=== PATIENT | male | born 2000 | race Two or more races ===

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

== ENCOUNTER 2021-02-08 19:13 | Emergency (ER) | payer MEDICAID ==
[~2021-02-08] VITALS: Ht 180.3 cm; Wt 115.0 kg
[~2021-02-08 19:13] MED LIST: DOCU-270 PO; HYDR-4396 PO; SERT-158 PO
[2021-02-08 19:37] VITALS: BP 129/77
== END 2021-02-08 19:45 | disposition left against medical advice (07) ==
LOC: EMS 19:13
DX: R20.0 Anesthesia of skin (principal); Z53.21 Procedure and treatment not carried out due to patient leaving prior to being seen by health care provider

== ENCOUNTER 2021-11-06 19:50 | Emergency (ER) | payer MEDICAID ==
[~2021-11-06] VITALS: Ht 182.9 cm; Wt 120.9 kg
[~2021-11-06 19:50] MED LIST changes: -DOCU-270 PO; +DOCU-385 PO
[2021-11-06 19:53] VITALS: BP 146/70
[2021-11-06] MEDS ORDERED: ESCI-8 PO (20:40)
[2021-11-06] MEDS ORDERED: ARIP5TAB37 PO (20:40)
[2021-11-06] MEDS ORDERED: BUSP5TAB20 PO (20:40)
[2021-11-06] MEDS ORDERED: HYDR-4808 PO (20:40)
[2021-11-06] MEDS ORDERED: LORA-1000 PO (21:30)
[2021-11-06] MEDS ORDERED: LORazepam 2 MG TABLET PO ONE (21:30)
== END 2021-11-06 23:03 | disposition home or self-care (01) ==
LOC: EMS 19:54
DX: F41.9 Anxiety disorder, unspecified (principal); F32.9 Major depressive disorder, single episode, unspecified; F20.9 Schizophrenia, unspecified; F14.90 Cocaine use, unspecified, uncomplicated; F12.90 Cannabis use, unspecified, uncomplicated; Z87.438 Personal history of other diseases of male genital organs; Z88.8 Allergy status to other drugs, medicaments and biological substances
CPT/HCPCS: 99283; 99284

== ENCOUNTER 2021-11-07 15:39 | Emergency (ER) | payer MEDICAID ==
[~2021-11-07] VITALS: Ht 182.9 cm; Wt 117.0 kg
[~2021-11-07 15:39] MED LIST changes: +ARIP5TAB37 PO; +BUSP5TAB20 PO; +ESCI-8 PO; +HYDR-4808 PO; +LORA-1000 PO
[2021-11-07 15:42] VITALS: BP 144/76
== END 2021-11-07 16:42 | disposition left against medical advice (07) ==
LOC: EMS 15:52
DX: Z53.21 Procedure and treatment not carried out due to patient leaving prior to being seen by health care provider (principal)

== ENCOUNTER 2022-04-16 14:17 | Emergency (ER) | payer MEDICAID, OTHER ==
[~2022-04-16] VITALS: Ht 182.9 cm; Wt 106.8 kg
[2022-04-16 14:24] VITALS: BP 97/55
[2022-04-16] MEDS ORDERED: QUET25TA PO (14:27)
[2022-04-16 15:05] LABS: COVID AG,FIA SOURCE NASAL SWAB
[2022-04-16] MEDS ORDERED: GuaiFENesin/D-METHORPHAN [SUGAR-FREE] 200-20MG/10 ML SYRUP UDCUP PO ONE (15:15)
[2022-04-16] MEDS ORDERED: ACETAMINOPHEN 500 MG TABLET PO ONE (15:15)
[2022-04-16] MEDS ORDERED: IBUP-1554 PO (15:40)
[2022-04-16] MEDS ORDERED: ACET-66 PO (15:40)
[2022-04-16] MEDS ORDERED: GUAIFDM PO (15:40)
== END 2022-04-16 15:50 | disposition home or self-care (01) ==
LOC: EMS 14:37
DX: R07.89 Other chest pain (principal); J06.9 Acute upper respiratory infection, unspecified; F41.9 Anxiety disorder, unspecified; F32.A Depression, unspecified; F20.9 Schizophrenia, unspecified; F12.90 Cannabis use, unspecified, uncomplicated; Z20.822 Contact with and (suspected) exposure to COVID-19
CPT/HCPCS: 99283

== ENCOUNTER 2022-04-23 13:29 | Emergency (ER) | payer OTHER ==
[~2022-04-23] VITALS: Ht 182.9 cm; Wt 122.7 kg
[~2022-04-23 13:29] MED LIST changes: +ACET-66 PO; -ARIP5TAB37 PO; -BUSP5TAB20 PO; -DOCU-385 PO; -ESCI-8 PO; +GUAIFDM PO; -HYDR-4396 PO; -HYDR-4808 PO; +IBUP-1554 PO; -LORA-1000 PO; +QUET25TA PO; -SERT-158 PO
[2022-04-23 13:37] VITALS: BP 115/72
[2022-04-23] MEDS ORDERED: LORazepam 1 MG TABLET PO ONE (14:30)
[2022-04-23] MEDS ORDERED: DiphenhydrAMINE HCL 25 MG CAPSULE PO ONE (14:30)
[2022-04-23] MEDS ORDERED: HALOPERIDOL 5 MG TABLET PO ONE (14:30)
== END 2022-04-23 14:39 | disposition home or self-care (01) ==
LOC: EMS 13:33
DX: F20.9 Schizophrenia, unspecified (principal); F32.9 Major depressive disorder, single episode, unspecified; F41.9 Anxiety disorder, unspecified; F12.90 Cannabis use, unspecified, uncomplicated; Z85.47 Personal history of malignant neoplasm of testis
CPT/HCPCS: 99284

== ENCOUNTER 2022-04-28 16:39 | Emergency (ER) | payer OTHER ==
[~2022-04-28] VITALS: Ht 182.9 cm; Wt 122.7 kg
[~2022-04-28 16:39] MED LIST changes: -ACET-66 PO; -GUAIFDM PO; -IBUP-1554 PO
[2022-04-28 16:41] VITALS: BP 148/76
[2022-04-28] MEDS ORDERED: LORazepam 2 MG/ML VIAL IVP ONE (18:00)
== END 2022-04-28 19:17 | disposition home or self-care (01) ==
LOC: EMS 16:39
DX: F41.9 Anxiety disorder, unspecified (principal); F32.9 Major depressive disorder, single episode, unspecified; F20.9 Schizophrenia, unspecified; F12.90 Cannabis use, unspecified, uncomplicated
CPT/HCPCS: 99281; Z7502

== ENCOUNTER 2022-07-30 14:00 | Emergency (ER) | payer OTHER ==
[~2022-07-30] VITALS: Ht 182.9 cm; Wt 122.7 kg
[2022-07-30 14:57] VITALS: BP 137/67
[2022-07-30] MEDS ORDERED: PENI500T2 PO (15:13)
[2022-07-30] MEDS ORDERED: IBUP-1554 PO (15:13)
[2022-07-30] MEDS ORDERED: HYDR-4723 PO (15:13)
[2022-07-30] MEDS ORDERED: IBUPROFEN 600 MG TABLET PO ONE (15:15)
[2022-07-30] MEDS ORDERED: HYDROCODONE/ACETAMINOPHEN 5-325 MG TABLET PO ONE (15:15)
== END 2022-07-30 15:37 | disposition home or self-care (01) ==
LOC: EMS 14:35
DX: K02.9 Dental caries, unspecified (principal); J45.909 Unspecified asthma, uncomplicated; F41.9 Anxiety disorder, unspecified; F32.A Depression, unspecified; F20.9 Schizophrenia, unspecified; F12.90 Cannabis use, unspecified, uncomplicated; Z88.8 Allergy status to other drugs, medicaments and biological substances
CPT/HCPCS: 99283

== ENCOUNTER 2022-08-04 11:15 | Emergency (ER) | payer OTHER ==
[~2022-08-04] VITALS: Ht 182.9 cm; Wt 118.2 kg
[~2022-08-04 11:15] MED LIST changes: +HYDR-4723 PO; +IBUP-1554 PO; +PENI500T2 PO; -QUET25TA PO
[2022-08-04] MEDS ORDERED: TRAM-559 PO (12:49)
[2022-08-04 13:00] VITALS: BP 125/76
== END 2022-08-04 13:20 | disposition home or self-care (01) ==
LOC: EMS 11:40
DX: S02.5XXA Fracture of tooth (traumatic), initial encounter for closed fracture (principal); K08.89 Other specified disorders of teeth and supporting structures; F41.9 Anxiety disorder, unspecified; J45.909 Unspecified asthma, uncomplicated; F32.A Depression, unspecified; F20.9 Schizophrenia, unspecified; F12.90 Cannabis use, unspecified, uncomplicated; Z88.8 Allergy status to other drugs, medicaments and biological substances; X58.XXXA Exposure to other specified factors, initial encounter; Y93.89 Activity, other specified; Y92.89 Other specified places as the place of occurrence of the external cause; Y99.8 Other external cause status
CPT/HCPCS: 99283; Z7502

== ENCOUNTER 2022-08-10 14:30 | Emergency (ER) | payer OTHER ==
[~2022-08-10] VITALS: Ht 182.9 cm; Wt 118.2 kg
[~2022-08-10 14:30] MED LIST changes: +TRAM-559 PO
[2022-08-10 15:24] VITALS: BP 104/70
[2022-08-10] MEDS ORDERED: TRAM-559 PO (15:40)
== END 2022-08-10 16:09 | disposition home or self-care (01) ==
LOC: EMS 14:34
DX: K02.9 Dental caries, unspecified (principal); F41.9 Anxiety disorder, unspecified; J45.909 Unspecified asthma, uncomplicated; F32.A Depression, unspecified; F20.9 Schizophrenia, unspecified; F12.90 Cannabis use, unspecified, uncomplicated; Z88.8 Allergy status to other drugs, medicaments and biological substances
CPT/HCPCS: 99283; Z7502

== ENCOUNTER 2022-09-05 16:38 | Emergency (ER) | payer OTHER ==
[~2022-09-05] VITALS: Ht 182.9 cm; Wt 122.7 kg
[~2022-09-05 16:38] MED LIST changes: -HYDR-4723 PO
[2022-09-05 16:59] VITALS: BP 112/67
== END 2022-09-05 19:17 | disposition left against medical advice (07) ==
LOC: EMS 16:39
DX: F41.0 Panic disorder [episodic paroxysmal anxiety] (principal); Z53.21 Procedure and treatment not carried out due to patient leaving prior to being seen by health care provider
CPT/HCPCS: 99281; Z7502

== ENCOUNTER 2022-09-11 14:09 | Emergency (ER) | payer OTHER ==
[~2022-09-11] VITALS: Ht 182.9 cm; Wt 118.2 kg
[2022-09-11] MEDS ORDERED: ESCI-8 PO (14:12)
[2022-09-11] MEDS ORDERED: LIDOCAINE 5% TRANSDERMAL PATCH TD ONE (15:30)
[2022-09-11] MEDS ORDERED: KETOROLAC TROMETHAMINE 30 MG/ML VIAL IM ONE (15:30)
[2022-09-11] MEDS ORDERED: LIDO700A15 TP (16:49)
[2022-09-11] MEDS ORDERED: CYCL-448 PO (16:49)
[2022-09-11 17:00] VITALS: BP 114/60
== END 2022-09-11 17:02 | disposition home or self-care (01) ==
LOC: EMS 14:11
DX: M54.2 Cervicalgia (principal); F41.9 Anxiety disorder, unspecified; J45.909 Unspecified asthma, uncomplicated; F32.A Depression, unspecified; F20.9 Schizophrenia, unspecified; F12.90 Cannabis use, unspecified, uncomplicated; Z88.8 Allergy status to other drugs, medicaments and biological substances
CPT/HCPCS: 99283; 72040; 96372; J1885

== ENCOUNTER 2022-09-14 08:33 | Emergency (ER) | payer OTHER ==
[~2022-09-14] VITALS: Ht 182.9 cm; Wt 113.6 kg
[~2022-09-14 08:33] MED LIST changes: +CYCL-448 PO; +ESCI-8 PO; -IBUP-1554 PO; +LIDO700A15 TP; -PENI500T2 PO; -TRAM-559 PO
[2022-09-14] MEDS ORDERED: IBUP-1492 PO (08:47)
[2022-09-14] MEDS ORDERED: KETOROLAC TROMETHAMINE 30 MG/ML VIAL IM ONE (09:00)
[2022-09-14 09:05] VITALS: BP 107/61
== END 2022-09-14 09:05 | disposition home or self-care (01) ==
LOC: EMS 08:35
DX: K13.79 Other lesions of oral mucosa (principal); K02.9 Dental caries, unspecified; F41.9 Anxiety disorder, unspecified; J45.909 Unspecified asthma, uncomplicated; F32.A Depression, unspecified; F20.9 Schizophrenia, unspecified; F12.90 Cannabis use, unspecified, uncomplicated; Z88.8 Allergy status to other drugs, medicaments and biological substances
CPT/HCPCS: 99283; 96372; J1885

== ENCOUNTER 2022-10-16 15:25 | Emergency (ER) | payer OTHER ==
[~2022-10-16] VITALS: Ht 182.9 cm; Wt 120.5 kg
[~2022-10-16 15:25] MED LIST changes: +IBUP-1492 PO
[2022-10-16] MEDS ORDERED: HYDR-4808 PO (15:53)
[2022-10-16] MEDS ORDERED: CLON-595 PO (15:53)
[2022-10-16 16:09] VITALS: BP 156/57
== END 2022-10-16 16:10 | disposition home or self-care (01) ==
LOC: EMS 15:25
DX: F41.0 Panic disorder [episodic paroxysmal anxiety] (principal); F41.9 Anxiety disorder, unspecified; J45.909 Unspecified asthma, uncomplicated; F32.A Depression, unspecified; F20.9 Schizophrenia, unspecified; F12.90 Cannabis use, unspecified, uncomplicated; Z88.8 Allergy status to other drugs, medicaments and biological substances
CPT/HCPCS: 99283; Z7502

== ENCOUNTER 2023-01-29 18:26 | Emergency (ER) | payer OTHER ==
[~2023-01-29] VITALS: Ht 185.4 cm; Wt 123.2 kg
[~2023-01-29 18:26] MED LIST changes: +CLON-595 PO; +HYDR-4808 PO
[2023-01-29 18:34] VITALS: BP 98/63; PULSE 75; RESP 18; TEMP 98
[2023-01-29] MEDS ORDERED: PARO10TA89 PO (18:54)
[2023-01-29] MEDS ORDERED: LORazepam 1 MG TABLET PO ONE (19:00)
== END 2023-01-29 19:05 | disposition home or self-care (01) ==
LOC: EMS 18:27
DX: F41.9 Anxiety disorder, unspecified (principal); J45.909 Unspecified asthma, uncomplicated; F32.A Depression, unspecified; F20.9 Schizophrenia, unspecified; F12.90 Cannabis use, unspecified, uncomplicated; Z88.8 Allergy status to other drugs, medicaments and biological substances
CPT/HCPCS: 99283

== ENCOUNTER 2023-02-12 13:42 | Emergency (ER) | payer OTHER ==
[~2023-02-12] VITALS: Ht 177.8 cm; Wt 103.0 kg
[~2023-02-12 13:42] MED LIST changes: -CLON-595 PO; -CYCL-448 PO; -ESCI-8 PO; -IBUP-1492 PO; -LIDO700A15 TP; +PARO10TA89 PO
[2023-02-12 13:43] VITALS: BP 122/78; PULSE 90; RESP 16; TEMP 98.4
[2023-02-12 15:40] LABS: BASOPHILS % (AUTO) 0.8 % (0.0-2.0); EOSINOPHILS % (AUTO) 0.3 % (1.0-6.0); HEMATOCRIT 42.4 % (41-53); HEMOGLOBIN 14.2 g/dL (13.5-17.5); LYMPHOCYTES # (AUTO) 0.8 K/uL (1.0-4.8); LYMPHOCYTES % (AUTO) 16.8 % (22.0-44.0); MEAN CORPUSCULAR HEMOGLOBIN 27.5 pg (26.0-34.0); MEAN CORPUSCULAR HGB CONC 33.5 G/dL (31.0-37.0); MEAN CORPUSCULAR VOLUME 82 fL (80-100); MONOCYTES # (AUTO) 0.6 K/uL (0.1-1.0); MONOCYTES % (AUTO) 14.2 % (2.0-9.0); NEUTROPHILS % (AUTO) 67.9 % (40.0-70.0); PLATELET COUNT (AUTO) 193 K/uL (150-450); RED BLOOD CELL COUNT(AUTO) 5.16 MIL/uL (4.50-5.90); WHITE BLOOD COUNT (AUTO) 4.5 K/uL (4.5-11.0)
[2023-02-12 15:53] LABS: ANION GAP 8 mmol/L (8-16); CALCIUM, TOTAL 8.7 mg/dL (8.8-10.5); CARBON DIOXIDE 27 mmol/L (22-29); CHLORIDE 103 mmol/L (98-107); CREATININE 0.94 mg/dL (0.60-1.30); GLOMERULAR FILTR. RATE CALC > 60 mL/min (>60); GLUCOSE,RANDOM 80 mg/dL (70-110); POTASSIUM 3.7 mmol/L (3.5-5.1); SODIUM SERUM 137 mmol/L (136-145); UREA NITROGEN, BLOOD 9 mg/dL (7-18)
[2023-02-12 15:58] LABS: ALANINE AMINOTRANSFERASE 60 U/L (12-78); ALBUMIN 3.5 g/dL (3.4-5.0); ALKALINE PHOSPHATASE 44 U/L (46-116); ASPARTATE AMINOTRANSFERASE 29 U/L (15-37); BILIRUBIN,TOTAL 0.5 mg/dL (0.1-1.0); TOTAL PROTEIN, SERUM 6.4 g/dL (6.4-8.2)
[2023-02-12 16:03] LABS: ALCOHOL, BLOOD (SERUM) < 3 mg/dL (0-10)
[2023-02-12] MEDS ORDERED: QUET25TA PO (16:36)
[2023-02-12] MEDS ORDERED: QUET100T PO (16:36)
== END 2023-02-12 16:56 | disposition home or self-care (01) ==
LOC: EMS 13:49
DX: F41.9 Anxiety disorder, unspecified (principal); G47.00 Insomnia, unspecified; J45.909 Unspecified asthma, uncomplicated; F32.A Depression, unspecified; F12.90 Cannabis use, unspecified, uncomplicated; Z88.8 Allergy status to other drugs, medicaments and biological substances
CPT/HCPCS: 80053; 85025; 36415; 99283; G0480

== ENCOUNTER 2023-03-15 12:13 | Emergency (ER) | payer OTHER ==
[~2023-03-15] VITALS: Ht 185.4 cm; Wt 111.4 kg
[~2023-03-15 12:13] MED LIST changes: -PARO10TA89 PO; +QUET100T PO; +QUET25TA PO
[2023-03-15 12:18] VITALS: TEMP 98.2
[2023-03-15] MEDS ORDERED: ESCI20TA87 PO (12:18)
[2023-03-15 14:45] VITALS: BP 110/60; PULSE 80; RESP 12
== END 2023-03-15 14:58 | disposition home or self-care (01) ==
LOC: EMS 12:14
DX: G47.00 Insomnia, unspecified (principal); F41.9 Anxiety disorder, unspecified; J45.909 Unspecified asthma, uncomplicated; F32.A Depression, unspecified; F20.9 Schizophrenia, unspecified; F12.90 Cannabis use, unspecified, uncomplicated; Z88.8 Allergy status to other drugs, medicaments and biological substances
CPT/HCPCS: 99281; Z7502

== ENCOUNTER 2023-04-09 14:05 | Emergency (ER) | payer OTHER ==
[~2023-04-09] VITALS: Ht 184.2 cm; Wt 108.2 kg
[~2023-04-09 14:05] MED LIST changes: +ESCI20TA87 PO; +PARO10TA89 PO
[2023-04-09 14:16] VITALS: TEMP 97.9
[2023-04-09] MEDS ORDERED: KETOROLAC TROMETHAMINE 30 MG/ML VIAL IM ONE (15:45)
[2023-04-09] MEDS ORDERED: LIDOCAINE 5% TRANSDERMAL PATCH TD ONE (15:45)
[2023-04-09] MEDS ORDERED: TraMADol HCL 50 MG TABLET PO ONE (15:45)
[2023-04-09] MEDS ORDERED: CYCL-448 PO (17:15)
[2023-04-09] MEDS ORDERED: LIDO700A15 TP (17:15)
[2023-04-09 17:19] VITALS: BP 118/66; PULSE 64; RESP 16
== END 2023-04-09 17:20 | disposition home or self-care (01) ==
LOC: EMS 14:10
DX: S09.90XA Unspecified injury of head, initial encounter (principal); M54.2 Cervicalgia; J45.909 Unspecified asthma, uncomplicated; Z88.8 Allergy status to other drugs, medicaments and biological substances; X58.XXXA Exposure to other specified factors, initial encounter; Y93.89 Activity, other specified; Y92.89 Other specified places as the place of occurrence of the external cause; Y99.8 Other external cause status
CPT/HCPCS: 99283; 72040; 96372; J1885

== ENCOUNTER 2023-06-02 17:12 | Emergency (ER) | payer OTHER ==
[~2023-06-02] VITALS: Ht 182.9 cm; Wt 106.8 kg
[~2023-06-02 17:12] MED LIST changes: +CYCL-448 PO; -HYDR-4808 PO; +LIDO700A15 TP; -PARO10TA89 PO; -QUET100T PO; -QUET25TA PO
[2023-06-02 17:30] VITALS: BP 135/57; PULSE 75; RESP 16; TEMP 98.3
== END 2023-06-02 18:06 | disposition left against medical advice (07) ==
LOC: EMS 17:17
DX: F32.A Depression, unspecified (principal); Z53.21 Procedure and treatment not carried out due to patient leaving prior to being seen by health care provider
CPT/HCPCS: 99281; Z7502

== ENCOUNTER 2023-08-09 16:51 | Emergency (ER) | payer OTHER ==
[~2023-08-09] VITALS: Ht 185.4 cm; Wt 111.0 kg
[2023-08-09 17:17] VITALS: BP 91/54; PULSE 90; RESP 18; TEMP 96.6
[2023-08-09 17:52] LABS: PH,URINE DRUG SCREEN 6.5 (5.0-8.0)
[2023-08-09 17:56] LABS: ALCOHOL, URINE DRUG SCREEN NEGATIVE (NEGATIVE); AMPHET/METH SCREEN,URINE NEGATIVE (NEGATIVE); BARBITURATE SCREEN, URINE NEGATIVE (NEGATIVE); BENZODIAZEPINES SCREEN,URINE NEGATIVE (NEGATIVE); CANNABINOID SCREEN,URINE POSITIVE (NEGATIVE); COCAINE SCREEN,URINE NEGATIVE (NEGATIVE); METHADONE SCREEN, URINE NEGATIVE (NEGATIVE); OPIATE SCREEN,URINE NEGATIVE (NEGATIVE); PHENCYCLIDINE SCREEN,URINE NEGATIVE (NEGATIVE)
== END 2023-08-09 22:10 | disposition left against medical advice (07) ==
LOC: EMS 16:52
DX: S00.33XA Contusion of nose, initial encounter (principal); F41.9 Anxiety disorder, unspecified; J45.909 Unspecified asthma, uncomplicated; F32.A Depression, unspecified; F12.90 Cannabis use, unspecified, uncomplicated; Z88.8 Allergy status to other drugs, medicaments and biological substances; X58.XXXA Exposure to other specified factors, initial encounter; Y93.89 Activity, other specified; Y92.89 Other specified places as the place of occurrence of the external cause; Y99.8 Other external cause status
CPT/HCPCS: 80307; 99283

== ENCOUNTER 2023-11-03 10:07 | Emergency (ER) | payer OTHER ==
[~2023-11-03] VITALS: Ht 182.9 cm; Wt 99.0 kg
[2023-11-03 10:10] VITALS: BP 123/71; PULSE 97; RESP 16; TEMP 98.3
[2023-11-03 11:54] LABS: COVID AG,FIA SOURCE NASAL SWAB
[2023-11-03 11:58] LABS: BASOPHILS % (AUTO) 3.2 % (0.0-2.0); EOSINOPHILS % (AUTO) 1.1 % (1.0-6.0); HEMATOCRIT 43.8 % (41-53); HEMOGLOBIN 14.5 g/dL (13.5-17.5); LYMPHOCYTES # (AUTO) 1.3 K/uL (1.0-4.8); LYMPHOCYTES % (AUTO) 29.3 % (22.0-44.0); MEAN CORPUSCULAR HEMOGLOBIN 27.6 pg (26.0-34.0); MEAN CORPUSCULAR HGB CONC 33.2 G/dL (31.0-37.0); MEAN CORPUSCULAR VOLUME 83 fL (80-100); MONOCYTES # (AUTO) 0.3 K/uL (0.1-1.0); MONOCYTES % (AUTO) 7.7 % (2.0-9.0); NEUTROPHILS # (AUTO) 2.5 K/uL (1.8-7.7); NEUTROPHILS % (AUTO) 58.7 % (40.0-70.0); PLATELET COUNT (AUTO) 220 K/uL (150-450); RED BLOOD CELL COUNT(AUTO) 5.27 MIL/uL (4.50-5.90); WHITE BLOOD COUNT (AUTO) 4.3 K/uL (4.5-11.0)
[2023-11-03] MEDS: ClonazePAM 1 MG TABLET PO ONE (12:10)
[2023-11-03 12:13] LABS: SARS-COV2 (COVID) ANTIGEN,FIA Negative (Negative)
[2023-11-03 12:15] LABS: ANION GAP 9 mmol/L (8-16); CALCIUM, TOTAL 8.9 mg/dL (8.8-10.5); CARBON DIOXIDE 28 mmol/L (22-29); CHLORIDE 105 mmol/L (98-107); CREATININE 0.94 mg/dL (0.60-1.30); GLOMERULAR FILTR. RATE CALC > 60 mL/min (>60); GLUCOSE,RANDOM 92 mg/dL (70-110); POTASSIUM 5.1 mmol/L (3.5-5.1); SODIUM SERUM 142 mmol/L (136-145); UREA NITROGEN, BLOOD 7 mg/dL (7-18)
[2023-11-03 12:18] LABS: ALCOHOL, BLOOD (SERUM) < 3 mg/dL (0-10)
[2023-11-03 12:22] LABS: ALANINE AMINOTRANSFERASE 45 U/L (12-78); ALBUMIN 3.6 g/dL (3.4-5.0); ALKALINE PHOSPHATASE 41 U/L (46-116); ASPARTATE AMINOTRANSFERASE 26 U/L (15-37); BILIRUBIN,TOTAL 0.6 mg/dL (0.1-1.0); TOTAL PROTEIN, SERUM 6.8 g/dL (6.4-8.2)
== END 2023-11-03 13:03 | disposition home or self-care (01) ==
LOC: EMS 10:07
DX: F41.9 Anxiety disorder, unspecified (principal); J45.909 Unspecified asthma, uncomplicated; F32.A Depression, unspecified; F12.90 Cannabis use, unspecified, uncomplicated; Z88.8 Allergy status to other drugs, medicaments and biological substances; Z20.822 Contact with and (suspected) exposure to COVID-19
CPT/HCPCS: 99283; 87426; 80053; 85025; G0480

== ENCOUNTER 2024-05-15 11:39 | Emergency (ER) | payer OTHER ==
[~2024-05-15] VITALS: Ht 180.3 cm; Wt 100.0 kg
[2024-05-15 11:44] VITALS: BP 100/52; PULSE 56; RESP 18; TEMP 98.2; O2SAT 100
[2024-05-15] MEDS ORDERED: ESCI10TA PO (11:44)
[2024-05-15] MEDS ORDERED: FLUT16H NASAL (11:44)
== END 2024-05-15 14:03 | disposition left against medical advice (07) ==
LOC: EMS 11:42
DX: F41.9 Anxiety disorder, unspecified (principal); Z53.21 Procedure and treatment not carried out due to patient leaving prior to being seen by health care provider

== ENCOUNTER 2024-05-16 11:59 | Emergency (ER) | payer OTHER ==
[~2024-05-16] VITALS: Ht 180.3 cm; Wt 90.9 kg
[~2024-05-16 11:59] MED LIST changes: -CYCL-448 PO; +ESCI10TA PO; -ESCI20TA87 PO; +FLUT16H NASAL; -LIDO700A15 TP
[2024-05-16 12:04] VITALS: BP 100/46; PULSE 68; RESP 19; TEMP 97.7; O2SAT 99
== END 2024-05-16 13:33 | disposition left against medical advice (07) ==
LOC: EMS 11:59
DX: F43.21 Adjustment disorder with depressed mood (principal); F32.A Depression, unspecified; F41.9 Anxiety disorder, unspecified; F12.90 Cannabis use, unspecified, uncomplicated
CPT/HCPCS: 99281; Z7502